=== PATIENT | female | born 2000 | race Caucasian/White ===

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

== ENCOUNTER 2020-12-10 10:57 | Outpatient (CLI) | payer BC ==
[2020-12-10 12:35] LABS: SARS-CoV-2 NAA Rapid Test DETECTED (NotDetected)
== END 2020-12-10 10:58 | disposition home or self-care (01) ==
LOC: LAB 10:57
PROVIDERS: ATTEND Family Medicine
DX: U07.1 COVID-19 (principal); Z01.812 Encounter for preprocedural laboratory examination
CPT/HCPCS: U0002; U0005